=== PATIENT | female | born 1965 | race African-American/Black ===

== ENCOUNTER → 2016-08-23 | Outpatient (CLI) | payer MEDICARE, OTHER ==
[2016-04-17 14:49] VITALS: BP 126/65
[~2016-08-23] MED LIST: ACYC800T PO; ALBU0.63 NEB; ALPR1TAB6 PO; AMLO10TA2 PO; AMLO5TAB4; AMOX1TAB11 PO; ANTIBIOTIC; ASCO500T19 PO; ASCO500T3 PO; BACI28.44 TP; BENA10TA2; BENA10TA2 PO; BENA40TA2 PO; BYSTOLIC10 MG; BYSTOLIC10 MG PO; CALC650T6 PO; CEVI30CA PO; CEVI30CA5 PO; CHOL10007 PO; CRESTOR10 MG PO; CRESTOR20 MG PO; CYCL1DRO; CYCL1DRO EACHEYE; DOXY100T PO; ERGO400T PO; ESOM20CA; ESOM40CA PO; FURO-69 PO; FURO40TA4 PO; GABA-585 PO; GABA300S PO; GABA600T2 PO; INSU100C4 SQ; INSU100V31 SUBCUT; INSU100V8 SQ; INSU100V8 SUBCUT; LACT460C PO; LENA10CA PO; MAGN400C PO; OLOP30.53 NS; OXYC-323 PO; OXYC1TAB7 PO; OXYC20TA34 PO; POTA20TA12 PO; POTA20TA4 PO; PREN1TAB54 PO; PROAIR HFA8.5 GM IH; SPIR25TA3; SPIR50TA2 PO; TRAM50TA PO; VALA500T5 PO; VITA150T PO; VITA1CAP PO; VITA400C36 PO
--- NOTE | 2016-08-23 10:37 | RAD ---
Indication fall, pain. History of multiple myeloma. AP oblique and lateral views of the right knee were obtained. There is a sclerotic focus associated with the lateral proximal tibia. It is likely incidental and appears similar to a study 05/10/2015. No acute bony finding is seen. There is a probable small joint effusion. IMPRESSION: No acute bony finding
== END | disposition home or self-care (01) ==
LOC: RAD 08:51
PROVIDERS: ATTEND Family Medicine
DX: M25.561 Pain in right knee (principal); S89.91XA Unspecified injury of right lower leg, initial encounter; W19.XXXA Unspecified fall, initial encounter; Y93.89 Activity, other specified; Y92.89 Other specified places as the place of occurrence of the external cause; Y99.8 Other external cause status
CPT/HCPCS: 73562

== ENCOUNTER → 2016-10-24 | Outpatient (CLI) | payer MEDICARE, OTHER ==
[2016-04-17 14:49] VITALS: BP 126/65
--- NOTE | 2016-10-24 15:34 | RAD ---
EXAM: Chest 2 views. HISTORY: Cough, shortness of breath. COMPARISON: 04/17/2016. FINDINGS: Frontal and lateral views of the chest are obtained. A right-sided port catheter has its tip in the superior cavoatrial junction. Cholecystectomy clips are noted. Linear opacities in both bases indicate atelectasis or scarring. There is no pneumothorax or pleural effusion. The heart is mildly enlarged. Sclerosis of the right glenoid is stable and is likely posttraumatic or degenerative. There are atherosclerotic calcifications of the aorta. IMPRESSION: 1. Mild cardiomegaly. 2. Mild basilar atelectasis or scarring.
== END | disposition home or self-care (01) ==
LOC: RAD 12:39
PROVIDERS: ATTEND Nurse Practitioner Adult Health
DX: R05 Cough (principal)
CPT/HCPCS: 71020

== ENCOUNTER → 2017-02-24 | Outpatient (CLI) | payer MEDICARE, OTHER ==
[2016-04-17 14:49] VITALS: BP 126/65
[~2017-02-24] MED LIST changes: +CHOL100014 PO; -CHOL10007 PO
--- NOTE | 2017-02-24 17:19 | RAD ---
Chest radiograph 02/24/2017 at 1636 hours Indication: Posterior chest pain on the right. Comparison: Chest radiograph 10/24/2016 Technique: And PA and lateral views of the chest are provided. Findings: A right chest wall infusion port catheter is identified with the distal tip projecting over the superior vena cava. The cardiomediastinal silhouette is within normal limits. There is scarring in the left midlung. No pleural effusions. No pulmonary vascular congestion. No pneumothorax. Visualized osseous structures are normal. Impression: No acute cardiopulmonary process.
--- NOTE | 2017-02-24 17:22 | RAD ---
Sinus radiograph 02/24/2017 at 1641 hours Indication: Headache, congestion Comparison: None available Technique: 4 views of the sinuses are provided. Findings: Frontal sinuses are well aerated. Ethmoid air cells and maxillary sinuses appear well aerated. No evidence for air-fluid levels. Osseous calvaria, mandible and upper cervical spine are normal as visualized. Mastoid air cells appear well aerated. Findings suggestive of hyperostosis frontalis interna, benign variant. Impression: Paranasal sinuses appear well aerated.
== END | disposition home or self-care (01) ==
LOC: RAD 16:02
PROVIDERS: ATTEND Family Medicine
DX: R51 Headache (principal); R09.81 Nasal congestion; R06.02 Shortness of breath; R07.81 Pleurodynia
CPT/HCPCS: 70220; 71020

== ENCOUNTER → 2017-02-25 | Outpatient (CLI) | payer MEDICARE, OTHER ==
[2016-04-17 14:49] VITALS: BP 126/65
[2017-02-25 09:51] LABS: CHOLESTEROL/HDL RATIO 2.5; CREATININE 1.2 mg/dL (0.6-1.0); GFR 57.3
== END | disposition home or self-care (01) ==
LOC: LAB 09:08
PROVIDERS: ATTEND Internal Medicine Cardiovascular Disease
DX: I10 Essential (primary) hypertension (principal); E78.2 Mixed hyperlipidemia
CPT/HCPCS: 36415; 80061; 82565; 84520

== ENCOUNTER → 2017-07-16 | Outpatient (CLI) | payer MEDICARE, OTHER ==
[2016-04-17 14:49] VITALS: BP 126/65
== END | disposition home or self-care (01) ==
LOC: LAB 11:06
PROVIDERS: ATTEND Internal Medicine Cardiovascular Disease
DX: E78.2 Mixed hyperlipidemia (principal)
CPT/HCPCS: 36415; 83700

== ENCOUNTER → 2018-07-22 | Outpatient (CLI) | payer MEDICARE, OTHER ==
[2016-04-17 14:49] VITALS: BP 126/65
[~2018-07-22] MED LIST changes: -AMLO10TA2 PO; +AMLO10TA6 PO; -BENA10TA2; -BENA10TA2 PO; +BENA10TA4; +BENA10TA4 PO; -BENA40TA2 PO; +BENA40TA3 PO; -OXYC-323 PO; +OXYC1TAB15 PO; -SPIR25TA3; +SPIR25TA5; -SPIR50TA2 PO; +SPIR50TA4 PO
--- NOTE | 2018-07-22 11:22 | RAD ---
DATE: 07/22/2018 EXAM: DIGITAL DIAGNOSTIC RT, BREAST RIGHT HISTORY: Suspicious screening study COMPARISON: 07/02/2018 This study was interpreted with the benefit of Computerized Aided Detection (CAD). Breast Density: SCATTERED The breast parenchyma shows scattered fibroglandular densities. Breast parenchyma level B. FINDINGS: On the oblique view of the screening study there were vague opacities projected posteriorly inferiorly. Today's spot compression and straight mediolateral views demonstrate patchy fibroglandular type shadows. There is one 5 mm slightly more dense opacity best seen inferiorly on the straight mediolateral view. It is not clearly visualized on the current cc views or the previous cc mammograms, however, it may lie medially. Right breast ultrasound, 07/22/2018: A targeted ultrasound exam of the inferior aspect of the right breast was performed. No significant abnormality is seen medially. At the 6:00 location approximately 8 cm from the nipple there are 2 small smooth hyperechoic foci. Each of these measures approximately 7 mm. There is a similar-sized small hyperechoic foci is at the 7:00 location approximately 10 cm in the nipple. These findings are nonspecific but most likely represent lipomas. No suspicious sonographic abnormality warranting biopsy is identified. IMPRESSION: Probably benign mammographic and sonographic findings as described above. Follow-up 3-D mammography and right breast ultrasound in 6 months is suggested. BI-RADS CATEGORY: 3 PROBABLY BENIGN FINDING(S)-SHORT INTERVAL FOLLOW-UP SUGGESTED RECOMMENDED FOLLOW-UP: 6M 6 MONTH FOLLOW-UP PQRS compliance statement: Patient information was entered into a reminder system with a target due date for the next mammogram. Mammography is a sensitive method for finding small breast cancers, but it does not detect them all and is not a substitute for careful clinical examination. A negative mammogram does not negate a clinically suspicious finding and should not result in delay in biopsying a clinically suspicious abnormality. "Our facility is accredited by the [employer] Mammography [employer]."
== END | disposition home or self-care (01) ==
LOC: MAMMO 09:25
PROVIDERS: ATTEND Internal Medicine Hematology & Oncology
DX: R92.8 Other abnormal and inconclusive findings on diagnostic imaging of breast (principal)
CPT/HCPCS: 76641; 77065

== ENCOUNTER → 2018-12-17 | Outpatient (CLI) | payer MEDICARE, OTHER ==
[2016-04-17 14:49] VITALS: BP 126/65
[~2018-12-17] MED LIST changes: +ALBU2.5V8 IH; -AMLO10TA6 PO; +AMLO10TA8 PO; -GABA600T2 PO; +GABA600T7 PO; -PROAIR HFA8.5 GM IH
--- NOTE | 2018-12-17 16:40 | KCIC ---
Left breast ultrasound: Reason for examination: History of left breast cancer with mastectomy and reconstruction. Complaining of chest wall pain. Ultrasound examination was performed of the reconstructed left breast and axilla. Breast implant is present. There is some edema in the soft tissue at the 2:00 position. In the 9:00 position there is a hypoechoic lesion which shows irregular margination and solid than wide and measures 1 cm in greatest dimension. Recurrent malignancy cannot be excluded and further evaluation with ultrasound-guided biopsy is recommended. No abnormal appearing lymph nodes are seen in the axilla. IMPRESSION: 1 cm irregularly marginated nodule at the 9:00 position approximately 9 cm from the expected position of the nipple. Recurrent malignancy cannot be excluded and ultrasound-guided biopsy is recommended. BI-RADS Category 4: Suspicious. These findings have been discussed with the patient and the patient's physician, Dr. Wall's, office was called at 4:30 PM on 12/17/2018 with no answer able to be left. Reattempt to will be made to notify Dr. Wall about these findings when the office reopens and will receives messages. "Our facility is accredited by the [employer] Mammography Program." Electronically signed by: Terra Vivar MD (12/17/2018 4:37 PM) [email or web address]
== END | disposition home or self-care (01) ==
LOC: KCIC US 14:32
PROVIDERS: ATTEND Internal Medicine Hematology & Oncology
DX: N63.22 Unspecified lump in the left breast, upper inner quadrant (principal); Z90.12 Acquired absence of left breast and nipple; Z98.82 Breast implant status; Z85.3 Personal history of malignant neoplasm of breast
CPT/HCPCS: 76641

== ENCOUNTER → 2019-02-26 | Outpatient (CLI) | payer MEDICARE, OTHER ==
[2016-04-17 14:49] VITALS: BP 126/65
--- NOTE | 2019-02-26 14:26 | RAD ---
Examination: BREAST RIGHT History: Abnormal mammogram and breast ultrasound follow-up. Comparison/Correlation: 07/22/2018 right breast ultrasound Findings: Ultrasound imaging of the right breast was performed. There are 2 hyperechoic masses similar to the previous exam at the 6:00 region 8 centimeter from nipple and at the 7:00 region 10 cm from the nipple. These measure up to 0.76 cm in diameter each. In the interval, there is now a hyperechoic mass at the 9:00 region 5 cm from the nipple measuring 1.4 cm x 2 cm x 0.8 cm. No flow on color Doppler imaging evident. Also on the interval, there is a hyperechoic mass at the 6:00 region measuring 0.5 cm x 0.2 cm x 0.2 cm which is nonvascular on color Doppler imaging and this is located 4 cm from the nipple. Impression: BI-RADS Category 3-probably benign. Previously seen hyperechoic lesions are unchanged. New hyperechoic lesions are also present. These may represent fat necrosis. 5-6 month follow-up ultrasound the time of annual mammographic evaluation is recommended. Electronically signed by: Yoel Braswell MD (02/26/2019 2:21 PM) [facility]
== END | disposition home or self-care (01) ==
LOC: US 15:26
PROVIDERS: ATTEND Internal Medicine Hematology & Oncology
DX: C50.412 Malignant neoplasm of upper-outer quadrant of left female breast (principal); N63.13 Unspecified lump in the right breast, lower outer quadrant; N63.11 Unspecified lump in the right breast, upper outer quadrant
CPT/HCPCS: 76641

== ENCOUNTER 2019-08-26 22:18 | Emergency (ER) | payer MEDICARE, MEDICAID ==
[~2019-08-26] VITALS: Ht 165.1 cm; Wt 122.5 kg
[~2019-08-26 22:18] MED LIST changes: -BENA10TA4; -BENA10TA4 PO; +BENA10TA55; +BENA10TA55 PO; +VITA-8 PO; -VITA400C36 PO
--- NOTE | 2019-08-26 23:19 | PHYS DOC ---
Past Medical History Past Medical History: Cancer, Diabetes-Type II, Ectopic , Fibromyalgia, High Cholesterol, Hypertension, Other Additional Past Medical Histor: Lupus, Multi Myeloma, Breast & bone Ca,LAST DOSE OF CHEMO WAS SEP 20, Past Surgical History: Cancer Surgery, Colectomy, Hysterectomy, Knee Replacement, Tubal ligation, Other Additional Past Surgical Histo: ,L)breast,CT-bilat,L)ankle,"intestine removed,"R)knee, bone marrow transpla Alcohol Use: None Drug Use: None Adult General Chief Complaint Chief Complaint: HYPERTENSION HPI HPI 54-year-old female with underlying history of diabetes, hypertension, end-stage renal disease with hemodialysis presents to the emergency department with complaints of elevated blood pressure. Patient states blood pressure was 204/104 at dialysis. She states she had a headache at that time. When patient was at home, she took her blood pressure medications with an extra dose. BP here is 170/92. She denies any chest pain, shortness of breath, nausea, vomiting. Nothing makes her symptoms worse, nothing makes her symptoms better. Review of Systems Review of Systems Constitutional: Denies fever or chills [] Respiratory: Denies cough or shortness of breath [] Cardiovascular: No additional information not addressed in HPI [] GI: Denies abdominal pain, nausea, vomiting, bloody stools or diarrhea [] Musculoskeletal: Denies back pain or joint pain [] Integument: Denies rash or skin lesions [] Neurologic: + headache, no focal weakness or sensory changes [] All other systems were reviewed and found to be within normal limits, except as documented in this note. Allergies Allergies Allergies Coded Allergies Type Severity Reaction Last Updated Verified Iodinated Contrast Media Allergy Severe Hives 04/17/16 Yes NSAIDS (Non-Steroidal Anti-Inflamma Allergy Intermediate rash 04/17/16 Yes aspirin Allergy Intermediate rash 04/17/16 Yes fentanyl Allergy Intermediate Itching 04/17/16 Yes hydrocodone Allergy Intermediate Nausea and Vomiting 04/17/16 Yes latex Allergy Intermediate Rash 04/17/16 Yes Physical Exam Physical Exam Constitutional: Well developed, well nourished, no acute distress, non-toxic appearance. [] HENT: Normocephalic, atraumatic, bilateral external ears normal, oropharynx moist, no oral exudates, nose normal. [] Eyes: PERRLA, EOMI, conjunctiva normal, no discharge. [] Cardiovascular:Heart rate regular rhythm, no murmur [] Lungs & Thorax: Bilateral breath sounds clear to auscultation [] Abdomen: Bowel sounds normal, soft, no tenderness, no masses, no pulsatile masses. [] Skin: Warm, dry, no erythema, no rash. [] Back: No tenderness, no CVA tenderness. [] Extremities: No tenderness, no edema. [] Neurologic: Alert and oriented X 3, no focal deficits noted. [] Psychologic: Affect normal, judgement normal, mood normal. [] Current Patient Data Vital Signs Vital Signs Date Time Temp Pulse Resp B/P (MAP) Pulse Ox O2 Delivery O2 Flow Rate FiO2 08/26/19 23:30 98.2 86 18 185/83 (117) 97 Room Air 98.2 Lab Values Laboratory Tests Test 08/26/19 23:35 Sodium Level 138 mmol/L (136-145) Potassium Level 3.2 mmol/L (3.5-5.1) L Chloride Level 99 mmol/L (98-107) Carbon Dioxide Level 36 mmol/L (21-32) H Anion Gap 3 (6-14) L Blood Urea Nitrogen 18 mg/dL (7-20) Creatinine 3.9 mg/dL (0.6-1.0) H Estimated GFR (Cockcroft-Gault) 14.5 Glucose Level 180 mg/dL (70-99) H Calcium Level 8.1 mg/dL (8.5-10.1) L Laboratory Tests 08/26/19 23:35 EKG EKG [] Radiology/Procedures Radiology/Procedures [] Course & Med Decision Making Course & Med Decision Making Pertinent Labs and Imaging studies reviewed. (See chart for details) []54-year-old female with underlying history of diabetes, hypertension, end- stage renal disease with hemodialysis presents to the emergency department with complaints of elevated blood pressure. Patient states blood pressure was 204/104 at dialysis. She states she had a headache at that time. When patient was at home, she took her blood pressure medications with an extra dose. BP here is 170/92. She denies any chest pain, shortness of breath, nausea, vomiting. Nothing makes her symptoms worse, nothing makes her symptoms better. BMP reviewed - potassium 3.2 (replaced in ER) BP stable Recommend dc home and follow up with PCP/HD as scheduled Dragon Disclaimer Dragon Disclaimer This electronic medical record was generated, in whole or in part, using a voice recognition dictation system. Departure Departure Impression: Primary Impression: Hypertension Additional Impression: Hypokalemia Disposition: 01 HOME, SELF-CARE Condition: IMPROVED Referrals: RIANNA WILL MD (PCP) Patient Instructions: Hypertension, Hypokalemia Additional Instructions: Recommend follow up with PCP 3 - 5 days Return to the ER with worsening symptoms, intractable pain, fever, altered menta l status Tylenol/Motrin as needed for pain Hypokalemia in ER - replaced po Problem Qualifiers Primary Impression: Hypertension Hypertension type: essential hypertension Qualified Codes: I10 - Essential (primary) hypertension AIDEN GALVAN MD Aug 26, 2019 23:19
[2019-08-26 23:30] VITALS: BP 185/83
[2019-08-26 23:51] LABS: CALCIUM 8.1 mg/dL (8.5-10.1); CREATININE 3.9 mg/dL (0.6-1.0); GFR 14.5; POTASSIUM 3.2 mmol/L (3.5-5.1)
[2019-08-27] MEDS ORDERED: POTASSIUM CHLORIDE 20 MEQ TABLET.ER. PO ONE
== END 2019-08-27 00:07 | disposition home or self-care (01) ==
LOC: ER 22:18
DX: I10 Essential (primary) hypertension (principal); E87.6 Hypokalemia; R51 Headache; E11.9 Type 2 diabetes mellitus without complications; E78.00 Pure hypercholesterolemia, unspecified; M32.9 Systemic lupus erythematosus, unspecified; Z88.6 Allergy status to analgesic agent; Z88.4 Allergy status to anesthetic agent; Z88.5 Allergy status to narcotic agent; Z91.041 Radiographic dye allergy status; Z91.040 Latex allergy status; Z88.8 Allergy status to other drugs, medicaments and biological substances
CPT/HCPCS: 36415; 80048; 99283

== ENCOUNTER → 2020-10-23 | Outpatient (CLI) | payer MEDICARE, MEDICAID ==
[~2020-10-23] MED LIST changes: +AMLO-187 PO; -AMLO10TA8 PO
--- NOTE | 2020-10-23 16:23 | RAD ---
EXAM: Right breast diagnostic mammogram with tomosynthesis; right breast sonogram. HISTORY: 55-year-old female with a history of left breast cancer, status post left mastectomy, presen ts for follow-up evaluation of findings within a sonogram performed 02/26/2019. The patient did not re turn at the recommended 6 month follow-up interval and is now due for right breast mammography. TECHNIQUE: Full-field digital craniocaudal and mediolateral oblique 2D and 3D tomosynthesis images of the right breast are obtained for evaluation. Computer aided detection was applied. Sonographic imag ing of the right breast localized to sites of prior findings was also performed. COMPARISON: None grams dated 02/26/2019 and 12/17/2018 and mammograms dated 07/22/2018, 07/02/2018, and 08/19/2016 BREAST PARENCHYMAL DENSITY: Level A - Mostly fat. FINDINGS: There are stable findings consistent with reduction mammoplasty surgery. There are coarse b enign-appearing calcifications within the subareolar 6:00 and 9:00 positions, the appearance of which favors changes due to fat necrosis. There are additional benign-appearing calcifications elsewhere w ithin the right breast. There is stable nodularity within the inferior medial breast, a component of which is due to a tortuous vessel. There is partial visualization of a right chest wall port catheter . There is no suspicious mass or architectural distortion. Sonographic imaging of the right breast demonstrates a 1.4 cm heterogeneous hypoechoic lesion within the superficial subcutaneous soft tissues at the 6:00 position 4 cm from the nipple. This underlies a cutaneous scar related to reduction mammoplasty surgery. This is associated with shadowing likely co rresponding with corresponding calcifications in this location demonstrated mammographically. The com bined mammographic and sonographic appearance favor fat necrosis. There is a 1.4 cm oval hypoechoic lesion at the 9:00 position 3 cm from the nipple which also corresp onds with the site of coarse benign calcifications and suspected fat necrosis demonstrated mammograph ically. There is no suspicious finding within the right axilla. The previously demonstrated circumscr ibed hyperechoic lesions possibly due to lipomas are no longer seen. IMPRESSION: 1. Nodules containing coarse calcifications within the 6:00 and 9:00 subareolar locations of the righ t breast, the mammographic and sonographic appearance of which favors changes due to fat necrosis. Th is is likely related to prior reduction mammoplasty surgery. 2. BI-RADS Category 3: Probably benign finding(s). Given a history of contralateral breast malignancy , precautionary short-term follow-up with a right breast sonogram in 6 months is recommended to confi rm mammographic stability. If your mammogram demonstrates that you have dense breast tissue, which could hide abnormalities, and if you have other risk factors for breast cancer that have been identified, you might benefit from s upplemental screening tests that may be suggested by your ordering physician. Dense breast tissue, i n and of itself, is a relatively common condition. This information is not provided to cause undue c oncern, but rather to raise your awareness and to promote discussion with your physician regarding th e presence of other risk factors, in addition to dense breast tissue. A report of your mammography re sults will be sent to you and your physician. You should contact your physician if you have any ques tions or concerns regarding this report. Mammography is a sensitive method for finding small breast cancers, but it does not detect them all a nd is not a substitute for careful clinical examination. A negative mammogram does not negate a clin ically suspicious finding and should not result in delay in biopsying a clinically suspicious abnorma lity. PQRS compliance statement - Patient information was entered into a reminder system with a target due date for the next mammogram. "Our facility is accredited by the [employer] Mammography Program." Electronically signed by: Karina Simmons MD (10/23/2020 4:21 PM) [id number]
== END ==
LOC: MAMMO 09:07
PROVIDERS: ATTEND Internal Medicine Hematology & Oncology
DX: N63.13 Unspecified lump in the right breast, lower outer quadrant (principal)
CPT/HCPCS: 76641; 77065; G0279; 77061

== ENCOUNTER → 2020-11-28 | Outpatient (CLI) | payer MEDICARE, MEDICAID ==
[~2020-11-28] MED LIST changes: -ACYC800T PO; +ACYC800T88 PO
== END ==
LOC: LAB 11:45
PROVIDERS: ATTEND Ophthalmology
DX: Z01.812 Encounter for preprocedural laboratory examination (principal); Z20.822 Contact with and (suspected) exposure to COVID-19
CPT/HCPCS: U0003; U0005

== ENCOUNTER 2020-12-01 07:29 | Day surgery (SDC) | payer MEDICARE, MEDICAID ==
[~2020-12-01 07:29] MED LIST changes: +CHONDROIT-SOD-HYALURONATE KIT. ONE; +CHONDROITIN-SOD-HYALURONATE 0.5 ML DISP.SYRIN. ONE; +CIPROFLOXACIN 0.3% OPHTH SOLUTION 5ML BOTTLE. OS ONE; +IV RINGERS,LACTATED 1000ML 1,000 ML IV SCH; +LIDOCAINE 1%/PHENYLEPH 1.5% PF OPHTH 1 ML VIAL. ONE; +LIDOCAINE 2% JELLY 6ML IN APPLICATOR. OS ONE; +NEO/POLYMYX/DEXAMETH OPHTH OINTMENT 3.5GM TUBE. ONE; +PROCHLORPERAZINE 10 MG/2 ML VIAL. IVP PRN; +PROPARACAINE 0.5% OPHTH SOLUTION 15ML BOTTLE. OS ONE
[2020-12-01] MEDS ORDERED: IV NORMAL SALINE 1000ML BAG 1,000 ML IV SCH (09:00)
[2020-12-01] MEDS ORDERED: INSULIN LISPRO 100 UNIT/ML 3ML VIAL for OP,RR ONLY. SQ PRN (09:00)
[2020-12-01] MEDS: PHENYLEPHRINE 10% OPHTH SOLUTION 5ML BOTTLE. OS SCH ×3 (09:02→09:12)
[2020-12-01] MEDS: CYCLOPENTOLATE 1% OPHTH SOLUTION 2ML BOTTLE. OS SCH ×3 (09:02→09:12)
[2020-12-01] MEDS ORDERED: MIDAZOLAM HCL/PF 2 MG/2 ML VIAL. ONE (10:20)
[2020-12-01 11:41] VITALS: BP 127/60
[2020-12-01] MEDS ORDERED: HEPARIN PF 500 UNIT/5 ML DISP.SYRIN. IVP ONE ×2 (11:47→12:00)
[2020-12-01] MEDS ORDERED: HEPARIN for IV BOLUS 10,000 UNIT/10 ML VIAL. ONE (11:47)
[2020-12-01] MEDS ORDERED: HEPARIN for SUB-Q USE 5,000 UNIT/ML VIAL. SQ ONE (11:51)
--- NOTE | 2020-12-01 12:47 | OP ---
DATE OF SURGERY: 12/01/2020 PREOPERATIVE DIAGNOSES: 1. Open angle glaucoma of the left eye. 2. Cataract of the left eye. 3. Diabetic retinopathy nonproliferative and mild of the left eye. 4. Stargardt's disease of the left eye. PROCEDURE: 1. [place] Dual blade goniotomy of the left eye. 1. Cataract extraction with posterior chamber intraocular lens implantation of the left eye. SURGEON: Buzz Morgan MD ANESTHESIA: Topical with monitored anesthesia care. DESCRIPTION OF PROCEDURE: The left eye was prepped with Betadine in the usual sterile fashion and drape. A paracentesis was performed followed by instillation of preservative-free lidocaine admixed with phenylephrine and balanced salt solution. A temporal clear corneal incision was made followed by instillation of Viscoat and a capsulorrhexis was performed. Balanced salt solution was used to hydrate the nucleus and expresses at the pupillary plane, which was sandwiched with Viscoat. The phacoemulsification handpiece was used to remove the nucleus with numerous reinstallation of Viscoat due to the patient's existing care topically of guttata. The I/A handpiece was then used to remove the cortex and viscoelastic was injected into the capsular bag. An [place] model [id number] with a power of 16.5 diopters was placed into the capsular bag. Balanced salt solution was used to hydrate the corneal wounds and the viscoelastic evacuated with the I/A handpiece. Once no leak was noted, Maxitrol was placed on the eye and the eye shielded and the patient was sent to the recovery room uneventfully. BUZZ MORGAN MD DR: MELA/marian JOB#: [id number] / [id number]
[2020-12-07] MEDS ORDERED: TERA2CAP3 PO (15:59)
== END 2020-12-01 12:03 | disposition home or self-care (01) ==
LOC: SURG 07:29
PROVIDERS: ATTEND Ophthalmology
DX: E11.319 Type 2 diabetes mellitus with unspecified diabetic retinopathy without macular edema (principal); E11.36 Type 2 diabetes mellitus with diabetic cataract; H40.10X0 Unspecified open-angle glaucoma, stage unspecified; H25.89 Other age-related cataract; I10 Essential (primary) hypertension; E78.00 Pure hypercholesterolemia, unspecified; M19.90 Unspecified osteoarthritis, unspecified site; K21.9 Gastro-esophageal reflux disease without esophagitis; E66.9 Obesity, unspecified; J45.909 Unspecified asthma, uncomplicated; F32.9 Major depressive disorder, single episode, unspecified; Z85.3 Personal history of malignant neoplasm of breast; Z79.899 Other long term (current) drug therapy; Z98.890 Other specified postprocedural states; Z79.4 Long term (current) use of insulin; Z91.041 Radiographic dye allergy status; Z91.040 Latex allergy status; Z88.8 Allergy status to other drugs, medicaments and biological substances
CPT/HCPCS: 65820; 66984; 82962; J0171; J0690; J1580; J1642; J1644; J2250; J3490; V2632

== ENCOUNTER 2020-12-08 08:27 | Day surgery (SDC) | payer MEDICARE, MEDICAID ==
[~2020-12-08] VITALS: Ht 165.1 cm; Wt 113.4 kg
[~2020-12-08 08:27] MED LIST changes: +CIPROFLOXACIN 0.3% OPHTH SOLUTION 5ML BOTTLE. OD ONE; -CIPROFLOXACIN 0.3% OPHTH SOLUTION 5ML BOTTLE. OS ONE; +LIDOCAINE 2% JELLY 6ML IN APPLICATOR. OD ONE; -LIDOCAINE 2% JELLY 6ML IN APPLICATOR. OS ONE; -PROCHLORPERAZINE 10 MG/2 ML VIAL. IVP PRN; +PROPARACAINE 0.5% OPHTH SOLUTION 15ML BOTTLE. OD ONE; -PROPARACAINE 0.5% OPHTH SOLUTION 15ML BOTTLE. OS ONE; +TERA2CAP3 PO
[2020-12-08] MEDS ORDERED: INSULIN LISPRO 100 UNIT/ML 3ML VIAL for OP,RR ONLY. SQ PRN (09:45)
[2020-12-08] MEDS ORDERED: IV NORMAL SALINE 1000ML BAG 1,000 ML IV SCH (09:45)
[2020-12-08] MEDS: PHENYLEPHRINE 10% OPHTH SOLUTION 5ML BOTTLE. OD SCH ×3 (09:47→09:57)
[2020-12-08] MEDS: CYCLOPENTOLATE 1% OPHTH SOLUTION 2ML BOTTLE. OD SCH ×3 (09:47→09:57)
[2020-12-08] MEDS ORDERED: INSULIN LISPRO 100 UNIT/ML 3ML VIAL for OP,RR ONLY. SQ ONE (09:50)
[2020-12-08] MEDS ORDERED: HEPARIN PF 500 UNIT/5 ML DISP.SYRIN. IVP ONE (10:00)
[2020-12-08] MEDS ORDERED: MIDAZOLAM HCL/PF 2 MG/2 ML VIAL. ONE (10:31)
[2020-12-08 11:55] VITALS: BP 149/67
--- NOTE | 2020-12-08 12:10 | OP ---
DATE OF SURGERY: 12/08/2020 PREOPERATIVE DIAGNOSES: 1. Open-angle glaucoma of the right eye. 2. Cataract of the right eye. PROCEDURES: 1. [place] dual blade goniotomy of the right eye. 2. Cataract extraction with posterior chamber intraocular lens implantation of the right eye. INDICATION: Painless progressive visual loss and visually significant cataract. SURGEON: Eddie Covarrubias MD ANESTHESIA: Topical with monitored anesthesia care. DESCRIPTION OF PROCEDURE: The right eye was prepped with Betadine in the usual sterile fashion and draped. A paracentesis was performed followed by instillation of preservative-free phenylephrine admixed with balanced salt solution and lidocaine. A temporal clear corneal incision was made followed by instillation of Viscoat. The head and microscope were then repositioned to visualize the anterior chamber angle and a [place] dual blade was brought onto the field and the nasal trabecular meshwork was excised. The head and microscope were repositioned and a capsulorrhexis was performed followed by hydro expression due to the apparent, loose zonules that were noted during the capsulorrhexis. Viscoat was placed anterior and posterior to the nucleus and it was evacuated with the phacoemulsification handpiece. During the course, further Viscoat was injected to protect the posterior capsule for which there was posterior pressure and the corneal endothelium. Following this, the cortex was removed with the IA handpiece and then Provisc was placed into the anterior chamber and an [place] model [id number] with a power of 16.5 diopters was placed into the capsular bag. Balanced salt solution was used to hydrate the corneal wounds and the viscoelastic evacuated with the IA handpiece. Once no leak was noted, Maxitrol was placed on the eye and the eye shielded and the patient sent to the recovery room uneventfully. Thank you for this summary. MUMTAZ BOWMAN: Ting TID: [id number]
== END 2020-12-08 12:05 | disposition home or self-care (01) ==
LOC: SURG 08:27
PROVIDERS: ATTEND Ophthalmology
DX: E11.36 Type 2 diabetes mellitus with diabetic cataract (principal); H25.89 Other age-related cataract; H40.10X0 Unspecified open-angle glaucoma, stage unspecified; E78.00 Pure hypercholesterolemia, unspecified; J45.909 Unspecified asthma, uncomplicated; E66.9 Obesity, unspecified; K21.9 Gastro-esophageal reflux disease without esophagitis; I12.9 Hypertensive chronic kidney disease with stage 1 through stage 4 chronic kidney disease, or unspecified chronic kidney disease; E11.22 Type 2 diabetes mellitus with diabetic chronic kidney disease; N18.9 Chronic kidney disease, unspecified; I25.10 Atherosclerotic heart disease of native coronary artery without angina pectoris; F32.9 Major depressive disorder, single episode, unspecified; M06.9 Rheumatoid arthritis, unspecified; Z99.2 Dependence on renal dialysis; Z79.899 Other long term (current) drug therapy; Z98.890 Other specified postprocedural states; Z79.4 Long term (current) use of insulin; Z91.041 Radiographic dye allergy status; Z88.8 Allergy status to other drugs, medicaments and biological substances; Z91.040 Latex allergy status; Z20.822 Contact with and (suspected) exposure to COVID-19
CPT/HCPCS: 65820; 66984; 82962; 87426; J0171; J0690; J1580; J1642; J1815; J2250; J3490; U0003; U0005; V2632

== ENCOUNTER → 2021-05-11 | Outpatient (CLI) | payer MEDICARE, MEDICAID ==
[~2021-05-11] MED LIST changes: -CALC650T6 PO; +CALC650T7 PO; -CHONDROIT-SOD-HYALURONATE KIT. ONE; -CHONDROITIN-SOD-HYALURONATE 0.5 ML DISP.SYRIN. ONE; -CIPROFLOXACIN 0.3% OPHTH SOLUTION 5ML BOTTLE. OD ONE; -IV RINGERS,LACTATED 1000ML 1,000 ML IV SCH; -LIDOCAINE 1%/PHENYLEPH 1.5% PF OPHTH 1 ML VIAL. ONE; -LIDOCAINE 2% JELLY 6ML IN APPLICATOR. OD ONE; -NEO/POLYMYX/DEXAMETH OPHTH OINTMENT 3.5GM TUBE. ONE; +POTA-121 PO; -POTA20TA4 PO; -PROPARACAINE 0.5% OPHTH SOLUTION 15ML BOTTLE. OD ONE
--- NOTE | 2021-05-11 14:43 | RAD ---
US BREAST RT 05/11/2021 11:08 AM INDICATION: Asymptomatic screening mammogram. COMPARISON: Right breast ultrasound 321 TECHNIQUE: Limited sonographic evaluation the right breast was performed. FINDINGS: Imaging of the right breast at the 6:00 position, 4 cm from the nipple with nodular subcutaneous thic kening which is deep to the breast reduction scar. Findings are stable suggestive of benign etiology. Additional areas of irregular hyperechoic masses without posterior acoustic enhancement. Findings ar e in parallel orientation. Consideration may be given for areas of fat necrosis. Findings are benign. IMPRESSION: Benign findings of the right breast. BI-RADS category: 2; Benign Recommendations: Recommend annual screening mammography in one year. Electronically signed by: Hanane Thompson MD (05/11/2021 2:40 PM) [id number]
== END ==
LOC: US 11:02
PROVIDERS: ATTEND Internal Medicine Hematology & Oncology
DX: N63.41 Unspecified lump in right breast, subareolar (principal); R92.8 Other abnormal and inconclusive findings on diagnostic imaging of breast
CPT/HCPCS: 76641

== ENCOUNTER → 2021-10-31 | Outpatient (CLI) | payer MEDICARE, MEDICAID ==
[~2021-10-31] MED LIST changes: -BENA40TA3 PO; +BENA40TA74 PO
--- NOTE | 2021-10-31 13:23 | RAD ---
INDICATION: 56 years of age asymptomatic female patient presents for screening mammography. TECHNIQUE: Full field craniocaudal and mediolateral oblique images of the right breast were obtained using digital technique with tomosynthesis and also analyzed with computer-aided detection software. COMPARISON: Prior mammographic imaging 07/02/2018, 05/17/2016 07/19/2017. BREAST COMPOSITION: Category A: The breasts are predominantly fatty. FINDINGS: Benign calcifications are present. The parenchymal pattern appears stable. Port projects over the ri ght breast limiting evaluation. No suspicious masses, microcalcifications or architectural distortion is present to suggest malignanc y in the right breast. The visualized right axilla is unremarkable. IMPRESSION: No mammographic evidence of malignancy end of the right breast. RECOMMENDATION: Annual screening mammography is recommended, unless clinically indicated sooner based on symptoms or change in physical exam. BIRADS 2: BENIGN This study was interpreted with the benefit of Computerized Aided Detection (CAD). Patient information is entered into the reminder system with a target due date for the next screening mammogram. Mammography is the most sensitive method for finding small breast cancers, but it does not detect the m all and is not a substitute for careful clinical examination. A negative mammogram does not negate a clinically suspicious finding and should not result in delay in biopsying a clinically suspicious a bnormality. "Our facility is accredited by the [employer] Mammography Program." Electronically signed by: Mehdi Payan MD (10/31/2021 1:21 PM) [id number]
== END ==
LOC: MAMMO 08:53
PROVIDERS: ATTEND Internal Medicine Hematology & Oncology
DX: Z12.31 Encounter for screening mammogram for malignant neoplasm of breast (principal)
CPT/HCPCS: 77063; 77067